=== PATIENT | female | born 1970 | race Hispanic/Latino ===

== ENCOUNTER 2023-05-31 08:10 | Observation (INO) | payer OTHER, MEDICARE ==
[~2023-05-31] VITALS: Ht 167.6 cm; Wt 84.5 kg
[2023-05-31] MEDS: NITROGLYCERIN 0.4 MG SL TAB SL PRN (08:30)
[2023-05-31 08:32] LABS: BASOPHILS # (AUTO) 0.04 K/uL (0.00-0.20); BASOPHILS % (AUTO) 0.4 % (0.0-5.0); EOSINOPHILS % (AUTO) 4.4 % (0.0-8.0); IMMATURE GRANULOCYTE ABSOLUTE 0.02 K/uL (0-1); LYMPHOCYTES # (AUTO) 1.8 K/uL (1.0-4.8); LYMPHOCYTES % (AUTO) 20.1 % (21.0-51.0); MEAN CORPUSCULAR HEMOGLOBIN 28.8 pg (27.0-33.0); MEAN CORPUSCULAR HGB CONC 32.7 g/dL (32.0-36.0); MONOCYTES # (AUTO) 1.1 K/uL (0.1-1.0); MONOCYTES % (AUTO) 12.2 % (3.0-13.0); NEUTROPHILS # (AUTO) 5.7 K/uL (1.8-7.7); NEUTROPHILS % (AUTO) 62.7 % (40.0-77.0); PLATELET COUNT (AUTO) 163 K/uL (130-400); RED BLOOD CELL COUNT(AUTO) 3.75 MIL/uL (4.00-5.50); RED CELL DISTRIBUTION WIDTH 13.7 % (11.0-15.5)
[2023-05-31 08:45] LABS: PROTHROMBIN TIME 11.8 SEC (9.6-11.6)
[2023-05-31 08:52] LABS: BILIRUBIN,TOTAL 0.3 mg/dL (0.2-1.0); MAGNESIUM 1.3 mg/dL (1.80-2.40); POTASSIUM 3.6 mmol/L (3.5-5.1); TOTAL PROTEIN, SERUM 6.7 g/dL (6.0-8.3)
[2023-05-31 08:53] LABS: B-TYPE NATRIURETIC PEPTIDE 45 pg/mL (0-100)
[2023-05-31] MEDS ORDERED: DIPHENHYDRAMINE HCL 25 MG CAPSULE PO PRN (09:30)
[2023-05-31] MEDS ORDERED: DOCUSATE SODIUM 100 MG CAP PO PRN (09:30)
[2023-05-31] MEDS ORDERED: POTASSIUM CHLORIDE 20MEQ/100ML 100 ML IV PRN ×2 (09:30)
[2023-05-31] MEDS ORDERED: KCL 20 MEQ ERTAB PO PRN (09:30)
[2023-05-31] MEDS ORDERED: GUAIFENESIN SUGAR-FREE 100 MG/5 ML UDCUP PO PRN (09:30)
[2023-05-31] MEDS ORDERED: ONDANSETRON 4MG INJ IV PRN (09:30)
[2023-05-31] MEDS ORDERED: GUAIFENESIN-DM 200/20 MG 10 ML PO PRN (09:30)
[2023-05-31] MEDS ORDERED: NITROGLYCERIN 0.4 MG SL TAB SL PRN (09:30)
[2023-05-31] MEDS: ASPIRIN 81MG CHEW TAB PO SCH (09:30)
[2023-05-31] MEDS ORDERED: DiphenhydrAMINE HCL 50 MG/ML VIAL IV PRN (09:30)
[2023-05-31] MEDS ORDERED: POLYETHYLENE GLYCOL 3350 17 GM POWD.PACK PO PRN (09:30)
[2023-05-31] MEDS ORDERED: MAG/ALUM/SIMETH 30 ML UDCUP PO PRN (09:30)
[2023-05-31] MEDS ORDERED: ACETAMINOPHEN 325 MG TAB PO PRN (09:30)
[2023-05-31] MEDS ORDERED: LACTULOSE 20 GM/30 ML UDCUP PO PRN (09:30)
[2023-05-31] MEDS ORDERED: HYDRALAZINE 25MG TABLET PO PRN (09:30)
[2023-05-31] MEDS ORDERED: ZOLPIDEM TARTRATE 5 MG TAB PO PRN (09:30)
[2023-05-31] MEDS ORDERED: ALPRAZOLAM 0.5 MG TABLET PO PRN (09:30)
[2023-05-31 09:51] LABS: HCG,QUALITATIVE URINE NEGATIVE (NEGATIVE)
[2023-05-31 09:56] LABS: APPEARANCE,URINE CLOUDY (CLEAR); BILIRUBIN,URINE NEGATIVE (NEGATIVE); COLOR,URINE LIGHT-YELLOW (YELLOW); GLUCOSE, URINE (UA) >=1000 mg/dL (NEGATIVE); KETONES,URINE NEGATIVE (NEGATIVE); LEUKOCYTE ESTERASE ,URINE 500 Leu/uL (NEGATIVE); NITRATE,URINE NEGATIVE (NEGATIVE); OCCULT BLOOD,URINE LARGE (NEGATIVE); PH,URINE 5.5 (5.0-8.0); PROTEIN,URINE 10 mg/dL (NEGATIVE); UROBILINOGEN,URINE 0.2 mg/dL (0.2-1.0)
[2023-05-31] MEDS: ENOXAPARIN SODIUM 40 MG/0.4 ML SYRINGE SQ SCH (10:00)
[2023-05-31 10:02] LABS: ADD UA MICROSCOPIC YES
[2023-05-31 10:12] LABS: BACTERIA,URINE RARE /HPF (None Seen); MUCUS,URINE RARE LPF (None Seen); RBC,URINE 51-100 /HPF (0-1); SQUAMOUS EPITHELIAL CELL,UR RARE /HPF (0-2); WBC,URINE TNTC /HPF (0-1); YEAST,URINE BUDDING FEW /HPF (None Seen)
[2023-05-31] MEDS: INSULIN HUMULIN R 100 UNIT/ML 3ML SQ SCH (11:25)
[2023-05-31] MEDS ORDERED: PREM625 PO (12:05)
[2023-05-31] MEDS ORDERED: ATOR-2 PO (12:05)
[2023-05-31] MEDS ORDERED: SENN8.6T90 PO (12:05)
[2023-05-31] MEDS ORDERED: MONT-39 PO (12:05)
[2023-05-31] MEDS ORDERED: HYDR12.54 PO (12:05)
[2023-05-31] MEDS ORDERED: MIRA50TA PO (12:05)
[2023-05-31] MEDS ORDERED: HYDR-3422 PO (12:05)
[2023-05-31] MEDS ORDERED: NITR0.4T50 SL (12:05)
[2023-05-31] MEDS ORDERED: KETO5DRO40 OU (12:05)
[2023-05-31] MEDS ORDERED: PANT40TA54 PO (12:05)
[2023-05-31] MEDS ORDERED: ISOS120T14 PO (12:05)
[2023-05-31] MEDS ORDERED: FLUT16H NASAL (12:05)
[2023-05-31] MEDS ORDERED: BROM3DRO OP (12:05)
[2023-05-31] MEDS ORDERED: GABA800T9 PO (12:05)
[2023-05-31] MEDS ORDERED: METF-445 PO (12:05)
[2023-05-31] MEDS ORDERED: DAPA10TA PO (12:05)
[2023-05-31] MEDS ORDERED: LOSA100T59 PO (12:05)
[2023-05-31] MEDS ORDERED: TRAM50TA4 PO (12:05)
[2023-05-31] MEDS ORDERED: GLIM4TAB36 PO (12:05)
[2023-05-31] MEDS ORDERED: RANO500T2 PO (12:05)
[2023-05-31] MEDS ORDERED: SEMA1PEN3 SQ (12:05)
[2023-05-31] MEDS ORDERED: CETI-89 PO (12:05)
[2023-05-31] MEDS ORDERED: ASPI-1197 PO (12:05)
[2023-05-31] MEDS ORDERED: LORA10TA7 PO (12:05)
[2023-05-31] MEDS ORDERED: METO-409 PO (12:05)
[2023-05-31] MEDS ORDERED: GABA-534 PO (12:05)
[2023-05-31] MEDS ORDERED: CLOP75TA32 PO (12:05)
[2023-05-31] MEDS ORDERED: OMEG-53 PO (12:05)
[2023-05-31] MEDS ORDERED: FAMO40TA7 PO (12:05)
[2023-05-31] MEDS ORDERED: MECL-302 PO (12:05)
[2023-05-31] MEDS ORDERED: CLON0.1T PO (12:05)
[2023-05-31 15:51] VITALS: BP 125/81; PULSE 80; RESP 14
[2023-05-31 16:00] VITALS: BP 132/69; PULSE 77; RESP 15; O2SAT 97
[2023-05-31] MEDS: ZOSYN 3.375GM +NS 50ML IV ONE (16:48)
[2023-05-31 16:59] LABS: AMPHET/METH SCREEN,URINE NEGATIVE (NEGATIVE); BARBITURATE SCREEN, URINE NEGATIVE (NEGATIVE); BENZODIAZEPINES SCREEN,URINE NEGATIVE (NEGATIVE); CANNABINOID SCREEN,URINE NEGATIVE (NEGATIVE); COCAINE SCREEN,URINE NEGATIVE (NEGATIVE); OPIATE SCREEN,URINE NEGATIVE (NEGATIVE); PHENCYCLIDINE SCREEN,URINE NEGATIVE (NEGATIVE)
[2023-05-31 20:00] VITALS: BP 134/69; PULSE 87; RESP 20; O2SAT 97
[2023-05-31] MEDS: FAMOTIDINE 20MG TAB PO SCH (20:18)
[2023-05-31] MEDS: ATORVASTATIN 40 MG TABLET PO SCH (20:18)
[2023-06-01] VITALS (10 sets, daily range): BP systolic 119–145; BP diastolic 60–83; PULSE 87–105; RESP 16–20; O2SAT 99–100
[2023-06-01 04:44] LABS: BASOPHILS # (AUTO) 0.03 K/uL (0.00-0.20); BASOPHILS % (AUTO) 0.4 % (0.0-5.0); EOSINOPHILS # (AUTO) 0.33 K/uL (0.00-0.70); HEMATOCRIT 38.9 % (36-48); IMMATURE GRANULOCYTE ABSOLUTE 0.04 K/uL (0-1); LYMPHOCYTES # (AUTO) 1.4 K/uL (1.0-4.8); LYMPHOCYTES % (AUTO) 16.9 % (21.0-51.0); MEAN CORPUSCULAR HEMOGLOBIN 28.2 pg (27.0-33.0); MEAN CORPUSCULAR HGB CONC 32.4 g/dL (32.0-36.0); MONOCYTES # (AUTO) 0.9 K/uL (0.1-1.0); MONOCYTES % (AUTO) 10.9 % (3.0-13.0); NEUTROPHILS # (AUTO) 5.6 K/uL (1.8-7.7); NEUTROPHILS % (AUTO) 67.3 % (40.0-77.0); PLATELET COUNT (AUTO) 199 K/uL (130-400); RED BLOOD CELL COUNT(AUTO) 4.47 MIL/uL (4.00-5.50); RED CELL DISTRIBUTION WIDTH 13.6 % (11.0-15.5); WHITE BLOOD COUNT (AUTO) 8.3 K/uL (4.8-10.8)
[2023-06-01 05:07] LABS: CREATININE 0.9 mg/dL (0.5-1.0); MAGNESIUM 1.9 mg/dL (1.80-2.40)
[2023-06-01] MEDS: REGADENOSON 0.4 MG/5 ML PF SYG IVP SCH (06:39)
[2023-06-01] MEDS: CEFTRIAXONE 2GM VIAL IVPB SCH (09:06)
[2023-06-01] MEDS: ACETAMINOPHEN 325 MG TAB PO PRN (12:30)
[2023-06-01] MEDS ORDERED: CLONIDINE HCL 0.1 MG TABLET PO PRN (17:30)
[2023-06-01] MEDS: GABAPENTIN 100 MG CAPSULE PO SCH ×2 (17:48→23:31)
[2023-06-01] MEDS ORDERED: NON-FORMULARY MEDICATION 1 EACH (Gabapentin 800 MG) PO SCH (21:00)
[2023-06-01] MEDS: ATORVASTATIN 40 MG TABLET PO SCH (21:01)
[2023-06-01] MEDS: HYDROCHLOROTHIAZIDE 25 MG TABLET PO SCH (21:02)
[2023-06-01] MEDS: METOPROLOL SUCCINATE 50 MG TAB.SR.24H PO SCH (21:02)
[2023-06-01] MEDS: HYDROXYZINE 25 MG TABLET PO SCH (21:02)
[2023-06-01] MEDS: GABAPENTIN 300 MG CAPSULE PO SCH (23:31)
[2023-06-02 04:00] VITALS: BP 126/65; PULSE 79; RESP 18
[2023-06-02 04:53] LABS: BASOPHILS # (AUTO) 0.04 K/uL (0.00-0.20); BASOPHILS % (AUTO) 0.5 % (0.0-5.0); EOSINOPHILS # (AUTO) 0.43 K/uL (0.00-0.70); HEMATOCRIT 36.2 % (36-48); IMMATURE GRANULOCYTE ABSOLUTE 0.04 K/uL (0-1); LYMPHOCYTES # (AUTO) 2.2 K/uL (1.0-4.8); LYMPHOCYTES % (AUTO) 25.4 % (21.0-51.0); MEAN CORPUSCULAR HEMOGLOBIN 28.9 pg (27.0-33.0); MEAN CORPUSCULAR HGB CONC 32.9 g/dL (32.0-36.0); MEAN CORPUSCULAR VOLUME 87.9 fL (79-99); MONOCYTES # (AUTO) 1.2 K/uL (0.1-1.0); MONOCYTES % (AUTO) 14.4 % (3.0-13.0); NEUTROPHILS # (AUTO) 4.6 K/uL (1.8-7.7); NEUTROPHILS % (AUTO) 54.2 % (40.0-77.0); PLATELET COUNT (AUTO) 187 K/uL (130-400); RED BLOOD CELL COUNT(AUTO) 4.12 MIL/uL (4.00-5.50); RED CELL DISTRIBUTION WIDTH 13.7 % (11.0-15.5); WHITE BLOOD COUNT (AUTO) 8.5 K/uL (4.8-10.8)
[2023-06-02 05:41] LABS: CREATININE 0.8 mg/dL (0.5-1.0); MAGNESIUM 1.8 mg/dL (1.80-2.40); POTASSIUM 3.5 mmol/L (3.5-5.1); THYROID STIMULATING HORMONE 2.44 uIU/mL (0.36-3.74)
[2023-06-02] MEDS: POTASSIUM CHLORIDE 10% ELIXIR 20 MEQ/15 ML UDCUP PO PRN (05:54)
[2023-06-02] MEDS: MAGNESIUM 2GM PREMIX 50ML 50 ML IV PRN (05:54)
[2023-06-02 07:37] VITALS: O2SAT 97
[2023-06-02 08:27] VITALS: BP 123/59; PULSE 73; RESP 16
[2023-06-02] MEDS: CETIRIZINE HCL 5 MG TABLET PO SCH (08:28)
[2023-06-02] MEDS: GLIMEPIRIDE 2 MG TABLET PO SCH (08:29)
[2023-06-02] MEDS: MONTELUKAST SODIUM 10 MG TAB PO SCH (08:30)
[2023-06-02] MEDS: LOSARTAN 100 MG TABLET PO SCH (08:30)
[2023-06-02] MEDS: (Dapagliflozin Propanediol (Farxiga) 10 MG) PO SCH (08:35)
[2023-06-02 08:42] LABS: ALBUMIN 3.2 g/dL (3.5-5.0); BILIRUBIN,TOTAL 0.3 mg/dL (0.2-1.0); TOTAL PROTEIN, SERUM 7.2 g/dL (6.0-8.3)
[2023-06-02 10:53] LABS: BAND NEUTROPHILS % (MANUAL) 1 % (0-2); EOSINOPHILS % (MANUAL) 9 % (1-6); LYMPHOCYTES % (MANUAL) 30 % (22-44); MONOCYTES % (MANUAL) 6 % (2-9); REACTIVE LYMPHOCYTES 6 % (0-0); SEGMENTED NEUTROPHILS % 48 % (40-70); TOTAL CELLS COUNTED 100
[2023-06-02 10:54] LABS: MAN.DIFF COMMENT-IMPRESSION MANUAL DIFFERENTIAL; PLATELET MORPHOLOGY COMMENT ADEQUATE
[2023-06-02 12:00] VITALS: BP 120/60; PULSE 77; RESP 16
[2023-06-02] MEDS ORDERED: CEFP200T14 PO (15:15)
[2023-06-02 17:27] VITALS: BP 102/55; PULSE 78; RESP 16
== END 2023-06-02 17:15 | disposition home or self-care (01) ==
LOC: EDH 08:10 → EDHIP 09:12 → 2CH 15:31 → 2AH 06-01 05:00
PROVIDERS: ADMIT Internal Medicine Pulmonary Disease; ATTEND Internal Medicine Pulmonary Disease
DX: I25.110 Atherosclerotic heart disease of native coronary artery with unstable angina pectoris (principal); N30.00 Acute cystitis without hematuria; D64.9 Anemia, unspecified; E11.65 Type 2 diabetes mellitus with hyperglycemia; E83.42 Hypomagnesemia; E66.9 Obesity, unspecified; I11.0 Hypertensive heart disease with heart failure; I50.22 Chronic systolic (congestive) heart failure; E78.00 Pure hypercholesterolemia, unspecified; F41.8 Other specified anxiety disorders; Z90.710 Acquired absence of both cervix and uterus; Z95.1 Presence of aortocoronary bypass graft; Z68.30 Body mass index [BMI] 30.0-30.9, adult; Z79.899 Other long term (current) drug therapy
CPT/HCPCS: 83880 ×3; 81001; 96372 ×3; 96365; 96366 ×2; 99285; 83735 ×3; 84484 ×5; 80053 ×2; 80305; 85025 ×3; 85610; 87088; 82948 ×11; 81025; 36415 ×3; 71045; 93005; 96367 ×2; 80048; 93017; 78452; 93306; 93356; 84443; J1815 ×4; G0378 ×52; J2543; J1650 ×3; J0696 ×2; J2785; A9500 ×2; J3475; 96374

== ENCOUNTER 2024-04-06 19:33 | Emergency (ER) | payer OTHER, MEDICARE ==
[~2024-04-06] VITALS: Ht 165.1 cm; Wt 73.0 kg
[~2024-04-06 19:33] MED LIST: ASPI-1197 PO; ATOR-2 PO; BROM3DRO OP; CEFP200T14 PO; CETI-89 PO; CLON0.1T PO; CLOP75TA32 PO; DAPA10TA PO; FAMO40TA7 PO; FLUT16H NASAL; GABA-1555 PO; GABA-534 PO; GLIM4TAB36 PO; HYDR-3422 PO; HYDR12.54 PO; KETO5DRO40 OU; LOSA100T59 PO; MECL-302 PO; METF-445 PO; METO-409 PO; MIRA50TA PO; MONT-39 PO; NITR0.4T50 SL; OMEG-53 PO; PANT40TA54 PO; PREM625 PO; RANO500T2 PO; SEMA1PEN3 SQ; SENN8.6T90 PO; TRAM50TA4 PO
--- NOTE | 2024-04-06 19:48 | NUR ---
UA CUP PROVIDED
--- NOTE | 2024-04-06 20:04 | ERN ---
ED Note History of Present Illness Stated Complaint: LOW BLOOD PRESSURE Chief Complaint: Chest Pain Time Seen by MD: 19:36 Dictation: This is a 54-year-old female who presented to the emergency room with complaints of midsternal discomfort and she stated that she checked her blood pressure as she was feeling dizzy and initially it was 89 over 50s and an hour later it was 69/50 off and on she has been running low blood pressures for the past 3 weeks per patient's report. No history of any flu symptoms no nausea vomitings diarrhea hematemesis or melena. Temperature 97.8 pulse 85 respirations 16 blood pressure 109/42 with a pulse oximetry of 97% on room air Her chronic medical problems include diabetes mellitus, hypertension, hypercholesterolemia, anxiety history of congestive heart failure and coronary artery disease status post CABG in the past. I reviewed patient's medication list and it is [id number] note she is also on metformin, Ozempic, hydrochlorothiazide, 100 mg of metoprolol(she was on 150 mg daily), please also see the medication list for details Allergies: Coded Allergies: hydralazine (Unverified Allergy, Intermediate, 05/31/23) Home Meds Active Scripts Cefpodoxime Proxetil (Cefpodoxime Proxetil) 200 Mg Tablet, 200 MG PO BID, #4 TAB Prov:YAIR HUSAIN 06/02/23 Reported Medications Ketorolac Tromethamine (Ketorolac Tromethamine) 0.5 % Drops, 5 ML OU BID, DROP 05/31/23 Bromfenac Sodium (Prolensa) 0.07 % Drops, 3 ML OP BID, DROP 05/31/23 Pantoprazole Sodium (Pantoprazole Sodium) 40 Mg Tablet.dr, 40 MG PO HS, TAB 05/31/23 Sennosides (Senokot) 8.6 Mg Tablet, 8.6 MG PO BID PRN for COUGH/COLD SYMPTOMS, TAB 05/31/23 Hydroxyzine HCl (Hydroxyzine HCl) 50 Mg Tablet, 50 MG PO BID, TAB 24 Estrogens,Conjugated (Premarin) 0.625 Mg Tab, 0.625 MG PO HS, TAB 05/31/23 Ranolazine (RANEXA) 500 Mg Tab.er.12h, 1000 MG PO BIDAC, TAB 05/31/23 Metformin HCl (Metformin HCl) 850 Mg Tablet, 850 MG PO BIDMEALS, TAB 05/31/23 Aspirin (Aspirin) 81 Mg Tab.chew, 81 MG PO DAILY, TAB.CHEW 05/31/23 Losartan Potassium (Losartan Potassium) 100 Mg Tablet, 100 MG PO DAILY, TAB 05/31/23 Gabapentin (Gabapentin) 800 Mg Tablet, 800 MG PO HS, TAB 05/31/23 Gabapentin (Gabapentin) 400 Mg Capsule, 400 MG PO BIDPC, CAP 05/31/23 Glimepiride (Glimepiride) 4 Mg Tablet, 4 MG PO BIDMEALS, TAB 05/31/23 Hydrochlorothiazide (Hydrochlorothiazide) 12.5 Mg Tablet, 12.5 MG PO BID, TAB 05/31/23 Fluticasone Propionate (Flonase Nasal [place]) 50 Mcg/Actuation [place], 50 MCG NASAL DAILY, SPRAY 05/31/23 Montelukast Sodium (Montelukast Sodium) 10 Mg Tablet, 10 MG PO DAILY, TAB 05/31/23 [place]-3S/Dha/Epa/Fish Oil/D3 (Fish Oil + D3 Softgel) 360 Mg-1,200 Mg-1,000 Unit Capsule, 1 EACH PO BID, CAP 05/31/23 Clopidogrel Bisulfate (Clopidogrel) 75 Mg Tablet, 75 MG PO HS, TAB 05/31/23 Atorvastatin Calcium (Atorvastatin Calcium) 80 Mg Tablet, 80 MG PO HS, TAB 05/31/23 Metoprolol Succinate (Metoprolol Succinate) 100 Mg Tab.er.24h, 100 MG PO BID, TAB 05/31/23 Tramadol Hcl (Tramadol HCl) 50 Mg Tablet, 50 MG PO Q8H PRN for PAIN LEVEL 7 TO 10, TAB 05/31/23 Meclizine HCl (Meclizine HCl) 25 Mg Tablet, 25 MG PO Q6HPRN PRN for VERTIGO, TAB 05/31/23 Cetirizine HCl (Zyrtec) 10 Mg Tablet, 10 MG PO DAILY, TAB 05/31/23 Famotidine (Famotidine) 40 Mg Tablet, 40 MG PO BID, TAB 05/31/23 Dapagliflozin Propanediol (Farxiga) 10 Mg Tablet, 10 MG PO DAILY, TAB 05/31/23 Clonidine HCl (Clonidine HCl) 0.1 Mg Tablet, 0.1 MG PO AD PRN for ADMINISTER FOR SBP > 150, TAB 05/31/23 Mirabegron (Myrbetriq) 50 Mg Tab.er.24h, 50 MG PO HS, TAB 05/31/23 Semaglutide (Ozempic) 1 Mg/0.75 Ml (4 Mg/3 Ml) Pen.injctr, 1 MG SQ QWEEK 05/31/23 Nitroglycerin (Nitroglycerin) 0.4 Mg Tab.subl, 0.4 MG SL AD, TAB.SL 05/31/23 Past Medical History Past Medical History: Anxiety, CHF, Depression, Diabetes-Type II, High Cholesterol, Heart Disease, Hypertension Surgical History: Hysterectomy, Cholecystectomy, CABG, Other Surgical History Other: RT KNEE Family History: Negative Social History: Negative History: Not Applicable RN Note Reviewed/Agreed w/PFSH: Yes Review of System Dictation Constitutional: Negative for fever,chills, and weight loss complaints of dizziness and low blood pressure Eyes: Negative for injury, pain,redness, and discharge ENT: Negative for injury,pain or swelling Cardiovascular: Positive for chest discomfort with nausea, denies palpitations, and edema Respiratory: Negative for shortness of breath, cough, and wheezing, Abdomen/GI: Negative for abdominal pain, nausea, vomiting, diarrhea, and constipation Back: Negative for injury and pain : Negative for injury, bleeding and discharge MS/Extremity: Negative for injury and deformity Skin: Negative for rash, and discoloration Neuro: Negative for headache, weakness, numbness, tingling, and seizure Psych: Negative for suicide ideation, homicidal ideation, and hallucinations Initial Vital Sign VS Vital Signs Date Time Temp Pulse Resp B/P (MAP) Pulse Ox O2 Delivery O2 Flow Rate FiO2 04/06/24 19:34 97.9 85 16 109/42 97 Room Air 04/06/24 20:38 0 21 Physical Exam Dictation General: awake, alert, NAD Head/Face: Normocephalic, atraumatic Eyes: PERRL, EOMI, vision at baseline ENT: oral cavity clear, TMs clear, no signs of infection, poor dentition missing teeth mucous membranes are dry Neck: Trachea midline, supple, no nuchal rigidity Cardiovascular: RRR, normal S1/S2, No MRGs, no JVD Respiratory: CTAB, no respiratory distress, No rales or wheezes Abdomen: Soft, non-tender, non-distended, normal bowel sounds, no guarding or rebound. Skin: Warm, dry, normal turgor, no rash MS/Extremity: Pulses equal, no cyanosis, neurovascular intact, FROM Neuro: COAx4, GCS 15, strength 5/5, CN 2-12 intact, normal cerebellar exam, normal gait, Psych: Normal behavior, mood, and affect normal Extremities-trace edema without any palpable cords, Homans sign is negative Results (Laboratory/Radiology) Laboratory/Radiology Laboratory Tests Test 04/06/24 20:15 04/06/24 20:35 04/06/24 23:28 White Blood Count 9.4 K/uL (4.8-10.8) Red Blood Count 4.11 MIL/uL (4.00-5.50) Hemoglobin 12.1 g/dL (12.0-16.0) Hematocrit 35.5 % (36-48) L Mean Corpuscular Volume 86.4 fL (79-99) Mean Corpuscular Hemoglobin 29.4 pg (27.0-33.0) Mean Corpuscular Hemoglobin Concent 34.1 g/dL (32.0-36.0) Red Cell Distribution Width 13.8 % (11.0-15.5) Platelet Count 206 K/uL (130-400) Mean Platelet Volume 10.1 fL (7.5-10.5) Immature Granulocyte % (Auto) 0.3 % (0-1) Neutrophils (%) (Auto) 63.5 % (40.0-77.0) Lymphocytes (%) (Auto) 24.5 % (21.0-51.0) Monocytes (%) (Auto) 9.4 % (3.0-13.0) Eosinophils (%) (Auto) 1.8 % (0.0-8.0) Basophils (%) (Auto) 0.5 % (0.0-5.0) Neutrophils # (Auto) 6.0 K/uL (1.8-7.7) Lymphocytes # (Auto) 2.3 K/uL (1.0-4.8) Monocytes # (Auto) 0.9 K/uL (0.1-1.0) Eosinophils # (Auto) 0.17 K/uL (0.00-0.70) Basophils # (Auto) 0.05 K/uL (0.00-0.20) Absolute Immature Granulocyte (auto 0.03 K/uL (0-1) Nucleated Red Blood Cells 0.0 % (0.0-0.19) Sodium Level 134 mmol/L (136-145) L Potassium Level 4.3 mmol/L (3.5-5.1) Chloride Level 96 mmol/L (101-111) L Carbon Dioxide Level 31 mmol/L (21-32) Blood Urea Nitrogen 18 mg/dL (7-18) Creatinine 1.2 mg/dL (0.5-1.0) H Glomerular Filtration Rate Calc 53 mL/min (>90) Random Glucose 99 mg/dL (70-105) Total Calcium 9.1 mg/dL (8.5-10.1) Total Creatine Kinase 44 U/L (21-232) Troponin I High Sensitivity 8 ng/L (4-50) B-Type Natriuretic Peptide 60 pg/mL (0-100) Troponin I < 0.05 ng/mL (0.00-0.05) Urine Color YELLOW (YELLOW) Urine Appearance CLEAR (CLEAR) Urine pH 6.0 (5.0-8.0) Urine Specific [place] 1.023 (1.001-1.031) Urine Protein 10 mg/dL (NEGATIVE) H Urine Glucose (UA) >=1000 mg/dL (NEGATIVE) H Urine Ketones NEGATIVE mg/dL (NEGATIVE) Urine Occult Blood NEGATIVE (NEGATIVE) Urine Nitrate NEGATIVE (NEGATIVE) Urine Bilirubin NEGATIVE mg/dL (NEGATIVE) Urine Urobilinogen 0.2 mg/dL (0.2-1.0) Urine Leukocyte Esterase 75 Ulises/uL (NEGATIVE) H Urine RBC 2-5 /HPF (0-1) H Urine WBC 2-5 /HPF (0-1) H Urine Squamous Epithelial Cells RARE /HPF (0-2) Urine Bacteria RARE /HPF (None Seen) Urine Hyaline Casts 2-5 /LPF (0-1 /LPF) H Labs Reviewed?: Yes EKG Comment: Twelve lead EKG done on 04/06/2024 at 7:58 p.m. showed a heart rate of 85 MS interval 171, QRS 158, QT/QTCb 396/471 Impression normal sinus rhythm with no acute ST elevations presence of left atrial enlargement right bundle branch block and left bundle as well. Insignificant Q's in lead 3. Interpreted by ER MD Dr. Thorpe ED Course ED Course Orders Procedure Category Date Status Time Vital Signs Per CPOE 04/06/24 Transmitted Routine 19:48 B-Type Natriuretic LAB 04/06/24 Complete Peptide 19:48 Chest 1vw RAD 04/06/24 Resulted 19:48 12 Lead Ekg Tracing- EKG 04/06/24 Complete Technical 19:48 Oxygen By Nc/Pulse Ox CPOE 04/06/24 Transmitted 19:48 Maintain Iv CPOE 04/06/24 Transmitted 19:48 Iv Insertion CPOE 04/06/24 Transmitted 19:48 Cardiac Monitoring CPOE 04/06/24 Transmitted 19:48 Pulse Oximetry With CPOE 04/06/24 Transmitted Vs And Prn 19:48 Cbc With Differential LAB 04/06/24 Complete 19:48 Activity: Br W/Brp CPOE 04/06/24 Transmitted With Assist 19:48 Creatine Kinase, Total LAB 04/06/24 Complete 19:48 Troponin I High LAB 04/06/24 Complete Sensitivity 19:48 Bedside Troponin-I LAB.ER 04/06/24 Complete (Poc) 19:48 Basic Metabolic Panel LAB 04/06/24 Complete 19:48 0.9% Nacl 500ml PHA 04/06/24 Complete Iv.Soln (Ns 500ml 21:00 Ondansetron 4mg Inj PHA 04/06/24 Complete (Zofran 4mg Inj) 21:00 Morphine 2mg Syg PHA 04/06/24 Complete (Morphine 2mg Syg) 21:00 Urinalysis Profile LAB 04/06/24 Complete 22:26 Culture Urine ROGER 04/06/24 In Process 23:53 Current Medications Medications (Trade) Dose Ordered Sig/Gracie Route PRN Reason Start Time Stop Time Status Last Admin Dose Admin Morphine Sulfate (morPHINE 2MG SYG) 2 mg ONCE ONCE IVP 04/06/24 21:00 04/06/24 21:01 DC 04/06/24 21:20 Ondansetron HCl (zoFRAN 4MG INJ) 4 mg ONCE ONCE IVP 04/06/24 21:00 04/06/24 21:01 DC 04/06/24 21:18 Sodium Chloride 500 ml @ 0 mls/hr ONCE ONCE IV 04/06/24 21:00 04/06/24 21:01 DC 04/06/24 21:19 Vital Signs Date Time Temp Pulse Resp B/P (MAP) Pulse Ox O2 Delivery O2 Flow Rate FiO2 04/07/24 00:09 98.1 71 18 108/60 96 Room Air* 0 21 04/06/24 23:35 98.8 73 18 117/60 96 Room Air* 0 21 04/06/24 22:28 78 16 114/62 97 Room Air* 0 21 04/06/24 20:38 98.8 82 20 111/59 98 Room Air* 0 21 04/06/24 19:34 97.9 85 16 109/42 97 Room Air We will perform diagnostic labs, advanced imaging and administer medications according to the patient's complaint. Once the results are available, will review and personally interpreted the labs to rule out any acute life-threaten ing emergency the trach require immediate intervention and treatment. I will then re-evaluate the patient after treatment and diagnostic exams have return to determine whether the patient requires any further testing, can safely be discharged home or need further admission to hospital for additional treatment and evaluation Labs reviewed CBC is with a normal limits. BNP 7 showed a sodium of 134 chloride 96 bicarb 31 BUN and creatinine are 18 and 1.2 with a glucose of 99. Troponins are negative Urinalysis was requested which is still pending 1105 p.m.-requested urinalysis again results pending 12:08 a.m. urinalysis finally reported small amount of leuko esterase but no WBCs to suggest any acute infection. . Discharge disposition delayed secondary to delay in obtaining urinalysis and for the results I had a long discussion with the patient and her mother who was at bedside about polypharmacy, drug interactions and with patient losing so much weight since she has been on Ozempic for the past 2 years, her antihypertensives and other medications may need to be readjusted with reduction in the dose. Patient verb alized full understanding and she will address this with her primary care physician HEART Score Response (Comments) Value History: Moderate suspicion (+1) 1 EKG: Repolarization changes 1 Age: 45-65yrs (+1) 1 Risk Factors: 1-2 risk factors (+1) 1 Initial Troponin: Normal limit (0) 0 HEART Score Risk: Low Risk for MACE (1-3) Total 4 Medical Decision Making MDM MDM: Differential diagnosis: Dehydration, UTI, drug interactions, medication effect Rationale: Tests considered and ordered secondary to shared decision making include: Previous outside records reviewed: Old ER visits. Risk of complication and/or morbidity or mortality of patient management: None Medications-Per medication reconciliation Need for hospitalization: Patient does not meet criteria for hospitalization. Need for emergency major/minor surgery: No There are no social concerns with this patient. Prescription drug management Prescriptions will include symptomatic care Patient's prior external medical records from other ER visits were reviewed by me as indicated. Prior testing and results from previous visits were reviewed. Prior tests were taken into account with medical decision making and resource utilization, independent historian/historians were used to obtain complete medical history. I independently interpreted the test that were performed, results were reviewed by me and considered findings on radiology if ordered. Medical management and examination interpretation discussions were had by me with other qualified healthcare professionals as indicated for the patient's care. Problem List Problem List: (1) Hypotension (2) Dehydration (3) Nausea (4) Polypharmacy DX & DISP Disposition: Discharge Departure Impression: Primary Impression: Hypotension Additional Impressions: Dehydration, Polypharmacy, Nausea Condition: Stable Additional Instructions: Patient and the caregiver have been informed of all the diagnostic tests and the imaging conducted during the today's visit to the emergency room and has verbalized understanding of the results I have personally reviewed and interpreted all diagnostic exams performed here in the ER today as well as the vital signs documented by the nursing staff. The patient is now being discharged to home and should follow up with the primary care physician or the specialist as directed by the ER staff. Follow-up with primary care provider in 1 to 2 days. Take medications as directed here in the emergency room. Okay to continue home medications unless otherwise discussed during your visit in the emergency room today. Return to your nearest emergency room if symptoms worsen or if there is no improvement. Call 911 if you need immediate assistance. Take Tylenol or Motrin [id number] as needed and if no contraindications are present. Increase oral hydration. A wound culture or urine culture was ordered here in the emergency room department please follow-up with primary care provider and advise them to get repeat ports from our facility. If you had any Pascual wrap/splints that were applied here, please do not remove them until you see your primary care or specialty. Patient to address the list of medications and streamline and discontinue once that she does not need.-she is on at least 30 medications from the list she showed on her cell phone She is also on Ozempic which could cause nausea and dehydration. Referrals: SELF,REFERRAL (PCP) MUMTAZ THORPE MD Apr 06, 2024 20:04
[2024-04-06 20:22] LABS: BASOPHILS # (AUTO) 0.05 K/uL (0.00-0.20); BASOPHILS % (AUTO) 0.5 % (0.0-5.0); EOSINOPHILS # (AUTO) 0.17 K/uL (0.00-0.70); EOSINOPHILS % (AUTO) 1.8 % (0.0-8.0); HEMATOCRIT 35.5 % (36-48); IMMATURE GRANULOCYTE ABSOLUTE 0.03 K/uL (0-1); LYMPHOCYTES # (AUTO) 2.3 K/uL (1.0-4.8); LYMPHOCYTES % (AUTO) 24.5 % (21.0-51.0); MEAN CORPUSCULAR HEMOGLOBIN 29.4 pg (27.0-33.0); MEAN CORPUSCULAR HGB CONC 34.1 g/dL (32.0-36.0); MEAN CORPUSCULAR VOLUME 86.4 fL (79-99); MONOCYTES # (AUTO) 0.9 K/uL (0.1-1.0); MONOCYTES % (AUTO) 9.4 % (3.0-13.0); NEUTROPHILS % (AUTO) 63.5 % (40.0-77.0); PLATELET COUNT (AUTO) 206 K/uL (130-400); RED BLOOD CELL COUNT(AUTO) 4.11 MIL/uL (4.00-5.50); RED CELL DISTRIBUTION WIDTH 13.8 % (11.0-15.5); WHITE BLOOD COUNT (AUTO) 9.4 K/uL (4.8-10.8)
[2024-04-06 20:29] LABS: CREATININE 1.2 mg/dL (0.5-1.0); POTASSIUM 4.3 mmol/L (3.5-5.1)
--- NOTE | 2024-04-06 20:40 | EKG ---
[facility] Test Date: 2024-04-06 Test Time: 19:58:53 Pat Name: VICTOR MANUEL GALARZA Department: ED Room: Gender: F Barrel Rifler Hook: [id number] : 1970 Requested By: MUMTAZ THORPE Order Number: [id number] Reading MD: Britton Pelayo Measurements Intervals [place] Rate: 85 P: 27 GA: 171 QRS: 94 QRSD: 158 T: 25 QT: 396 QTc: 471 Interpretive Statements Sinus rhythm Left atrial enlargement RBBB and LPFB Compared to ECG 05/31/2023 08:14:09 No significant changes Electronically Signed On 04-07-2024 12:12:15 WEATHERIZATION FIELD TECHNICIAN by Britton Pelayo Please click the below link to view image of tracing.
[2024-04-06 20:48] LABS: B-TYPE NATRIURETIC PEPTIDE 60 pg/mL (0-100)
--- NOTE | 2024-04-06 20:59 | HMCIMG ---
CHEST 1VW CLINICAL HISTORY: CHEST PAIN COMPARISON: 05/31/2023 TECHNIQUE: Single view of the chest was obtained. FINDINGS: Lungs are clear. Cardiac size unremarkable. Again demonstrated is change of prior median sternotomy. IMPRESSION: No acute cardiopulmonary process identified.
[2024-04-06] MEDS: ondanSETRON 4MG INJ IVP ONE (21:18)
[2024-04-06] MEDS: 0.9% NACL 500ML IV.SOLN 500 ML IV ONE (21:19)
[2024-04-06] MEDS: morPHINE 2 MG SYG IVP ONE (21:20)
[2024-04-06 23:52] LABS: APPEARANCE,URINE CLEAR (CLEAR); BILIRUBIN,URINE NEGATIVE (NEGATIVE); COLOR,URINE YELLOW (YELLOW); GLUCOSE, URINE (UA) >=1000 mg/dL (NEGATIVE); KETONES,URINE NEGATIVE (NEGATIVE); LEUKOCYTE ESTERASE ,URINE 75 Leu/uL (NEGATIVE); NITRATE,URINE NEGATIVE (NEGATIVE); OCCULT BLOOD,URINE NEGATIVE (NEGATIVE); PROTEIN,URINE 10 mg/dL (NEGATIVE); UROBILINOGEN,URINE 0.2 mg/dL (0.2-1.0)
[2024-04-06 23:53] LABS: ADD UA MICROSCOPIC YES
[2024-04-06 23:55] LABS: BACTERIA,URINE RARE /HPF (None Seen); SQUAMOUS EPITHELIAL CELL,UR RARE /HPF (0-2)
[2024-04-07 00:09] VITALS: BP 108/60; PULSE 71; RESP 18; TEMP 98; O2SAT 96
== END 2024-04-07 00:15 | disposition home or self-care (01) ==
LOC: EDH 19:33
DX: I95.9 Hypotension, unspecified (principal); E86.0 Dehydration; R11.0 Nausea; I11.0 Hypertensive heart disease with heart failure; I50.9 Heart failure, unspecified; E11.9 Type 2 diabetes mellitus without complications; E78.00 Pure hypercholesterolemia, unspecified; F41.9 Anxiety disorder, unspecified; Z79.02 Long term (current) use of antithrombotics/antiplatelets; Z79.82 Long term (current) use of aspirin; Z79.84 Long term (current) use of oral hypoglycemic drugs; Z79.85 Long-term (current) use of injectable non-insulin antidiabetic drugs; Z79.899 Other long term (current) drug therapy; Z90.49 Acquired absence of other specified parts of digestive tract; Z90.710 Acquired absence of both cervix and uterus; Z95.1 Presence of aortocoronary bypass graft
CPT/HCPCS: 99285; 96374; 71045; 96375; 82550; 84484 ×2; 80048; 83880; 85025; 87086; 81001; 36415; 93005; J7040; J2270; J2405